=== PATIENT | male | born 1990 | race African-American/Black ===

== ENCOUNTER 2025-05-04 17:42 | Emergency (ER) | payer OTHER ==
[2025-05-04 17:48] VITALS: RESP 20
--- NOTE | 2025-05-04 17:57 | ED ---
General Adult HPI - General Source: patient Mode of arrival: ambulatory Limitations: no limitations <Marie Herrmann - Last Filed: 05/04/25 18:54> <Karan Sotomayor - Last Filed: 05/05/25 20:44> - General Chief complaint: Extremity Injury, Lower Stated complaint: R leg injury Time Seen by Provider: 05/04/25 17:56 - History of Present Illness Initial comments: 34-year-old male with hypertension here for right posterior thigh pain. Patient reported that today he was playing basketball and jumped when he suddenly heard a pop when he landed. Since then he has experienced pain on his right posterior thigh that is nonradiating with an intensity of 10 out of 10 at maximum that is worse with ambulation. He since then had difficulty ambulating. He denied trauma, bruising, bleeding, decreased sensation of the affected leg. (Marie Herrmann) - Related Data Previous Rx's Medication Instructions Recorded Hydrocodone/Acetaminophen 1 each PO Q6H PRN #12 tab 05/04/25 [Hydrocodone-Acetamin 2.5-325] Ketorolac [Toradol] 10 mg PO Q6HR 4 Days #16 tab 05/04/25 Allergies Allergy/AdvReac Type Severity Reaction Status Date / Time No Known Allergies Allergy Verified 05/04/25 17:48 Review of Systems ROS Other: All systems not noted in ROS Statement are negative. <Marie Herrmann - Last Filed: 05/04/25 18:54> ROS Other: All systems not noted in ROS Statement are negative. <Karan Sotomayor - Last Filed: 05/05/25 20:44> ROS Statement: Those systems with pertinent positive or pertinent negative responses have been documented in the HPI. Past Medical History Past Medical History: Hypertension Past Surgical History: No Surgical Hx Reported Smoking Status: Current every day smoker Past Alcohol Use History: Abuse <Marie Herrmann - Last Filed: 05/04/25 18:54> General Exam Limitations: no limitations <Marie Herrmann - Last Filed: 05/04/25 18:54> - General Exam Comments Initial Comments: Physical examination: Vital signs reviewed General: non toxic, no distress, appears at stated age Head: atraumatic, normocephalic, symmetric Mouth: no lip lesion, mucus membranes moist Cardiovascular: S1S2 reg, no murmur Lungs: CTA bilateral, no rhonchi, no rales, no accessory muscle use Abdominal: soft, nondistended, nontender to palpation, no guarding Ext: muscle strength 5 out of 5 in all 4 extremities grossly, no gross muscle atrophy, no contractures, positive dorsalis pedis pulse bilateral, no edema, tenderness on light palpation of right posterior thigh, pain on the posterior thigh on extension and flexion of knee Neuro: no gross focal neuro deficits Psych: Alert and oriented x3, appropriate affect and mood (Marie Herrmann) Course Vital Signs 05/04/25 05/04/25 05/04/25 17:45 19:16 19:17 Temperature 97.4 F L 97.6 F Pulse Rate 92 90 Respiratory 20 20 Rate Blood Pressure 176/92 156/90 O2 Sat by Pulse 98 98 Oximetry Medical Decision Making <Marie Herrmann - Last Filed: 05/04/25 18:54> <Karan Sotomayor - Last Filed: 05/05/25 20:44> - Medical Decision Making Was pt. sent in by a medical professional or institution (, PA, MANAGING SUPERVISOR, urgent care, hospital, or longterm...) When possible be specific @ -No Did you speak to anyone other than the patient for history (EMS, parent, family, police, friend...)? What history was obtained from this source @ -No Did you review nursing and triage notes (agree or disagree)? Why? @ -I reviewed and agree with nursing and triage notes Were old charts reviewed (outside hosp., previous admission, EMS record, old EKG, old radiological studies, urgent care reports/EKG's, longterm records)? Report findings @ -No old charts were reviewed Differential Diagnosis? @ -Differential Musculoskeletal Muscular strain, contusion, ligament sprain, fracture, arthritis, septic arthritis, bursitis, cellulitis, muscle spasm, nerve compression, DVT, arterial occlusion, herpes zoster, electrolyte abnormality, tumor.... This is not meant to be in all inclusive list EKG interpreted by me (3pts min.). @ -None done X-rays interpreted by me (1pt min.). @ -None done CT interpreted by me (1pt min.). @ -None done U/S interpreted by me (1pt. min.). @ -None done What testing was considered but not performed or refused? (CT, X-rays, U/S, labs)? Why? @ -None What meds were considered but not given or refused? Why? @ -None Did you discuss the management of the patient with other professionals (professionals i.e. , PA, MANAGING SUPERVISOR, lab, RT, psych nurse, social sciences chair, undercover operator, teacher, infantry officer, nurse case manager)? Give summary @ -Dr. Sotomayor, supervising physician Was smoking cessation discussed for >3mins.? @ -No Was critical care preformed (if so, how long)? @ -No Were there social determinants of health that impacted care today? How? (H omelessness, low income, unemployed, alcoholism, drug addiction, transportation, low edu. Level, literacy, decrease access to med. care, half-way, rehab)? @ -No Was there de-escalation of care discussed even if they declined (Discuss DNR or withdrawal of care, Hospice)? DNR status @ -No What co-morbidities impacted this encounter? (DM, HTN, Smoking, COPD, CAD, Cancer, CVA, ARF, Chemo, Hep., AIDS, mental health diagnosis, sleep apnea, morbid obesity)? @ -None Was patient admitted / discharged? Hospital course, mention meds given and route, prescriptions, significant lab abnormalities, going to OR and other pertinent info. @ -Discharge. Patient sent home on crutches and Bromide Toradol p.o. advised to follow-up with PCP closely. Undiagnosed new problem with uncertain prognosis? @ -0.9 Drug Therapy requiring intensive monitoring for toxicity (Heparin, Nitro, Insulin, Cardizem)? @ -No Were any procedures done? @ -No Diagnosis/symptom? @ -Hamstring strain/sprain Acute, or Chronic, or Acute on Chronic? @ -Acute Uncomplicated (without systemic symptoms) or Complicated (systemic symptoms)? @ -Uncomplicated Side effects of treatment? @ -No Exacerbation, Progression, or Severe Exacerbation? @ -No Poses a threat to life or bodily function? How? (Chest pain, [place], [place], pneumonia, PE, COPD, DKA, ARF, appy, cholecystitis, CVA, Diverticulitis, Homicidal, Suicidal, threat to staff... and all critical care pts) @ -No (Marie Herrmann) I personally saw the patient and performed the critical portion of the service. I discussed the patient care with the resident. I directed management, care planning and final disposition of the patient. This includes, but not limited to, review of all lab work, radiological studies, EKG's, consultations, vital signs, and nursing notes. EKG interpreted by me (3pts min.) @As above X-Rays interpreted by me (1 pt min.) @None CT interpreted by me ( 1pt min.) @None U/S interpreted by me (1 pt min.) @None Critical care time of 0 minutes excluding separately billable procedures was spent in conjunction with critical care activities provided by the Resident and Attending simultaneously. I was present during no procedures for all critical portions of the procedure and as immediately available to furnish service during the entire procedure. (Karan Sotomayor) Disposition Is patient prescribed a controlled substance at d/c from ED?: Yes When asked, does pt state using other controlled substances?: No If prescribed controlled substance>3 days was MAPS reviewed?: Yes If opioid is for acute pain is fill amount 7 days or less?: Yes If Rx opioid, was Start Talking consent form obtained?: Yes Time of Disposition: 18:42 <Marie Herrmann - Last Filed: 05/04/25 18:54> <Karan Sotomayor - Last Filed: 05/05/25 20:44> Clinical Impression: Strain of hamstring Disposition: HOME SELF-CARE Condition: Good Instructions (If sedation given, give patient instructions): Hamstring Injury (ED) Additional Instructions: Advised follow-up with PCP closely. Advised to eat regularly and adequately hydrate. Prescriptions: Hydrocodone/Acetaminophen [Hydrocodone-Acetamin 2.5-325] 1 each PO Q6H PRN #12 tab PRN Reason: Moderate To Severe Pain (4-10) Ketorolac [Toradol] 10 mg PO Q6HR 4 Days #16 tab Referrals: [facility] [NON-STAFF] - 1-2 days
[2025-05-04 19:17] VITALS: BP 156/90; PULSE 90
[2025-05-04 19:18] VITALS: TEMP 97.6
== END 2025-05-04 20:00 | disposition home or self-care (01) ==
LOC: EC 17:42
DX: S76.911A Strain of unspecified muscles, fascia and tendons at thigh level, right thigh, initial encounter (principal); F17.200 Nicotine dependence, unspecified, uncomplicated; W09.8XXA Fall on or from other playground equipment, initial encounter; Y93.67 Activity, basketball
CPT/HCPCS: 99283

== ENCOUNTER 2025-05-10 20:07 | Emergency (ER) | payer OTHER ==
[2025-05-10 20:21] VITALS: RESP 18; TEMP 98.8
--- NOTE | 2025-05-10 20:22 | ED ---
Chest Pain HPI - General Chief Complaint: Chest Pain Stated Complaint: Chest Pain Time Seen by Provider: 05/10/25 20:13 Source: patient, RN notes reviewed, old records reviewed Mode of arrival: EMS Limitations: no limitations - History of Present Illness Initial Comments: This is a 34-year-old male who presents from [place] today. Patient presents from the ER for evaluation of multiple complaints mainly chest pain and shortness of breath. Patient has been [place] for almost 30 days, patient has significant swelling noted to both legs arms abdomen. Patient is also having chest pain here in the emergency department. Patient was sent for dizziness from [place]. Elevated blood pressure history of hypertension MD Complaint: chest pain, other (Edema and weight gain) -: days(s) Onset: during rest Pain Location: substernal Severity: moderate Severity scale (1-10): 4 Quality: tightness Consistency: intermittent Improves With: nothing Worsens With: nothing Anginal Symptoms: dyspnea Other Symptoms: palpitations Treatments Prior to Arrival: none - Related Data Previous Rx's Medication Instructions Recorded Hydrocodone/Acetaminophen 1 each PO Q6H PRN #12 tab 05/04/25 [Hydrocodone-Acetamin 2.5-325] Ketorolac [Toradol] 10 mg PO Q6HR 4 Days #16 tab 05/04/25 Allergies Allergy/AdvReac Type Severity Reaction Status Date / Time No Known Allergies Allergy Verified 05/04/25 17:48 Review of Systems ROS Statement: Those systems with pertinent positive or pertinent negative responses have been documented in the HPI. ROS Other: All systems not noted in ROS Statement are negative. EKG Findings - EKG Comments: EKG Findings:: EKG is sinus 82 NV 187 QRS 88 QTc 404 - EKG Results: EKG: interpreted by ERMD Past Medical History Past Medical History: Hypertension Past Surgical History: No Surgical Hx Reported Smoking Status: Current every day smoker Past Alcohol Use History: Abuse General Exam General appearance: alert, in no apparent distress Head exam: Present: atraumatic, normocephalic, normal inspection Eye exam: Present: normal appearance, PERRL, EOMI. Absent: scleral icterus, conjunctival injection, periorbital swelling ENT exam: Present: normal exam, mucous membranes moist Neck exam: Present: normal inspection. Absent: tenderness, meningismus, lymphadenopathy Respiratory exam: Present: normal lung sounds bilaterally. Absent: respiratory distress, wheezes, rales, rhonchi, stridor Cardiovascular Exam: Present: regular rate, normal rhythm, normal heart sounds. Absent: systolic murmur, diastolic murmur, rubs, gallop, clicks GI/Abdominal exam: Present: soft, normal bowel sounds. Absent: distended, tenderness, guarding, rebound, rigid Extremities exam: Present: normal inspection, full ROM, normal capillary refill. Absent: tenderness, pedal edema, joint swelling, calf tenderness Back exam: Present: normal inspection Neurological exam: Present: alert, oriented X3, CN II-XII intact Psychiatric exam: Present: normal affect, normal mood Skin exam: Present: warm, dry, intact, normal color. Absent: rash Course Vital Signs 05/10/25 05/10/25 20:14 22:28 Temperature 98.8 F Pulse Rate 83 74 Respiratory 18 18 Rate Blood Pressure 146/90 142/91 O2 Sat by Pulse 98 98 Oximetry - Reevaluation(s) Reevaluation #1: Medical records reviewed Reevaluation #2: Patient's symptoms resolved Reevaluation #3: Patient informed of results questions answered Reevaluation #4: Was pt. sent in by a medical professional or institution (, PA, BAKER APPRENTICE, urgent care, hospital, or half-way...) When possible be specific @ -no Did you speak to anyone other than the patient for history (EMS, parent, family, police, friend...)? What history was obtained from this source @ -no Did you review nursing and triage notes (agree or disagree)? Why? @ -agree Are old charts reviewed (outside hosp., previous admission, EMS record, old EKG, old radiological studies, urgent care reports/EKG's, half-way records)? Report findings @ -yes Differential Diagnosis (chest pain, altered mental status, abdominal pain women, abdominal pain men, vaginal bleeding, weakness, fever, dyspnea, syncope, headache, dizziness, GI bleed, back pain, seizure, CVA, palpatations, mental health, musculoskeletal)? @ -prior EKG interpreted by me (3pts min.). @ -yes X-rays interpreted by me (1pt min.). @ -yes negative for acute disease CT interpreted by me (1pt min.). @ -no U/S interpreted by me (1pt. min.). @ -no What testing was considered but not performed or refused? (CT, X-rays, U/S, labs)? Why? @ -none What meds were considered but not given or refused? Why? @ -none Did you discuss the management of the patient with other professionals (professionals i.e. , PA, BAKER APPRENTICE, lab, RT, psych nurse, administrator social welfare, fish skinning machine feeder, teacher, juvenile officer, family preservation caseworker)? Give summary @ -no Was smoking cessation discussed for >3mins.? @ -no Was critical care preformed (if so, how long)? @ -no Were there social determinants of health that impacted care today? How? (Homelessness, low income, unemployed, alcoholism, drug addiction, transportation, low edu. Level, literacy, decrease access to med. care, half-way, re hab)? @ -none Was there de-escalation of care discussed even if they declined (Discuss DNR or withdrawal of care, Hospice)? DNR status @ -no What co-morbidities impacted this encounter? (DM, HTN, Smoking, COPD, CAD, Cancer, CVA, ARF, Chemo, Hep., AIDS, mental health diagnosis, sleep apnea, morbid obesity)? @ -none Was patient admitted / discharged? Hospital course, mention meds given and route, prescriptions, significant lab abnormalities, going to OR and other pertinent info. @ - 34 male presents from [place] for chest pain shortness of breath edema with increased weight gain. Hypertension. Patient's blood pressure improved here in the ER, no significant cause of edema followed patient will be given diuresis and can be discharged home Discharge Undiagnosed new problem with uncertain prognosis? @ -no Drug Therapy requiring intensive monitoring for toxicity (Heparin, Nitro, Insulin, Cardizem)? @ -no Were any procedures done? @ -no Diagnosis/symptom? @ -Chest pain generalized body edema Acute, or Chronic, or Acute on Chronic? @ -Acute Uncomplicated (without systemic symptoms) or Complicated (systemic symptoms)? @ -Complicated Side effects of treatment? @ -no Exacerbation, Progression, or Severe Exacerbation? @ -exacerbation Poses a threat to life or bodily function? How? (Chest pain, [place], [place], pneumonia, PE, COPD, DKA, ARF, appy, cholecystitis, CVA, Diverticulitis, Homicidal, Suicidal, threat to staff... and all critical care pts) @ -yes with chest pain Reevaluation #5: Differential Chest Pain: Stable Angina, Unstable Angina, STEMI, NSTEMI Aortic Dissection, Pneumothorax, Musculoskeletal, Esophageal Spasm GERD, Cholecystitis, Pancreatitis, Zoster, this is not meant to be an all-inclusive list. Chest Pain MDM - MDM 34 male presents from [place] for chest pain shortness of breath edema with increased weight gain. Hypertension. Patient's blood pressure improved here in the ER, no significant cause of edema followed patient will be given diuresis and can be discharged home Disposition Clinical Impression: Chest pain, Anasarca Disposition: HOME SELF-CARE Condition: Good Instructions (If sedation given, give patient instructions): Edema (ED) Is patient prescribed a controlled substance at d/c from ED?: No Referrals: None,Stated [Primary Care Provider] - 1-2 days Time of Disposition: 22:00
--- NOTE | 2025-05-10 21:00 | XR ---
EXAMINATION TYPE: XR chest 2V DATE OF EXAM: 05/10/2025 8:56 PM COMPARISON: None TECHNIQUE: XR chest 2V Frontal and lateral views of the chest. CLINICAL INDICATION:Male, 34 years old with history of Chest Pain; FINDINGS: Lungs/Pleura: There is no evidence of pleural effusion, focal consolidation, or pneumothorax. Pulmonary vascularity: Unremarkable. Heart/mediastinum: Cardiomediastinal silhouette is unremarkable. Musculoskeletal: No acute osseous pathology. IMPRESSION: No acute cardiopulmonary disease/process. [facility], , 05/10/2025 8:57 PM
[2025-05-10 21:01] LABS: Basophils # (A) 0.06 10*3/uL (0.00-0.10); Basophils % (A) 0.6 %; Eosinophils # (A) 0.44 10*3/uL (0.04-0.35); Eosinophils % (A) 4.5 %; HCT 42.2 % (39.6-50.0); HGB 14.3 g/dL (13.0-17.0); Lymphocytes # (A) 3.13 10*3/uL (0.90-5.00); Lymphocytes % (A) 32.1 %; MCH 30.9 pg (27.0-32.0); MCHC 33.9 g/dL (32.0-37.0); MCV 91.1 fL (80.0-97.0); Monocytes # (A) 0.84 10*3/uL (0.20-1.00); Monocytes % (A) 8.6 %; Neutrophils # (A) 5.25 10*3/uL (1.80-7.70); Neutrophils % (A) 53.9 %; Platelet Count 219 10*3/uL (140-440); RBC 4.63 10*6/uL (4.40-5.60); RDW 13.2 % (11.5-14.5); WBC 9.75 10*3/uL (4.50-10.00)
[2025-05-10 21:18] LABS: ALT 95 U/L (4-49); AST 54 U/L (17-59); African American GFR (CKD) >90 (>60 ml/min/1.73 sqM); Albumin 4.0 g/dL (3.5-5.0); Alkaline Phosphatase 103 U/L (38-126); Anion Gap 7 mmol/L; Blood Urea Nitrogen 21 mg/dL (9-20); Calcium 9.3 mg/dL (8.4-10.2); Carbon Dioxide 27 mmol/L (22-30); Chloride 104 mmol/L (98-107); Glucose 96 mg/dL (74-99); Magnesium 1.6 mg/dL (1.6-2.3); Non-African American GFR(CKD) 88 (>60 ml/min/1.73 sqM); Potassium 3.9 mmol/L (3.5-5.1); Sodium 138 mmol/L (137-145); Total Protein 6.7 g/dL (6.3-8.2)
[2025-05-10 21:26] LABS: NT-Pro-B-Type Natriuretic Pept <20 pg/mL
[2025-05-10 22:04] LABS: Bilirubin,Urine Negative (Negative); Blood,Urine Negative (Negative); Color,Urine Light Yellow; Glucose,Urine (UA) Negative (Negative); Ketones,Urine Negative (Negative); Leukocyte Esterase,Urine Negative (Negative); Nitrite,Urine Negative (Negative); PH, Urine 6.5 (5.0-8.0); Protein,Urine Negative (Negative); Specific Gravity,Urine 1.027 (1.001-1.035); Urobilinogen,Urine <2.0 mg/dL (<2.0)
[2025-05-10] MEDS: FUROSEMIDE 10 MG/ML 4 ML VIAL IV STA (22:09)
[2025-05-10 22:37] VITALS: BP 142/91; PULSE 74
== END 2025-05-10 22:36 | disposition home or self-care (01) ==
LOC: EC 20:07
DX: R07.9 Chest pain, unspecified (principal); R60.1 Generalized edema; F17.200 Nicotine dependence, unspecified, uncomplicated
CPT/HCPCS: 36415; 93005; 83880; 80053; 83735; 84100; 84484; 85025; 81003; 71046; 99285; 96374; J1938